=== PATIENT | male | born 2000 ===

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

== ENCOUNTER 2020-05-25 10:23 | Emergency (ER) | payer SELFPAY | END 2020-05-25 10:54 | disposition home or self-care (01) | LOC: ERS 10:23 | DX: H60.92 Unspecified otitis externa, left ear (principal) | CPT/HCPCS: 99282 ==